=== PATIENT | male | born 1985 | race Caucasian/White ===

== ENCOUNTER → 2018-02-06 11:01 | Day surgery (SDC) | payer OTHER ==
[~2018-02-06 11:01] MED LIST: Buffered Lidocaine 0.9% SYRIN* 5 ML/SYR SYRINGE INTRADERM ONE; Dexamethasone TAB* 4 MG ONE; Dexamethasone TAB* 4 MG PO ONE; DiMENhydriNATE IV* 50 MG/ML VIAL IV PUSH PRN; Famotidine IV* 10 MG/ML 2 ML (20 mg) IV ONE; Famotidine IV* 10 MG/ML 2 ML (20 mg) ONE; KETAMINE HCL* 50 MG/ML 10 ML VIAL ONE; Lidocain 1% EPI 1:100,000 * 30 ML MDV ONE; Lidocaine 2% PF * 5 ML VIAL ONE; Lidocaine 4% TOPICAL* 50 ML TOP.SOLN ONE; Midazolam* 1 MG/ML 5 ML VIAL (5 MG) ONE; Morphine VIAL* 4 MG/ML VIAL (1 ml vial) IV PRN; Naloxone* 0.4 MG/ML 1 ML VIAL IV PRN; Ondansetron ODT TAB* 4 MG ONE; Ondansetron TAB* 4 MG PO ONE; Oxymetazoline 0.05% NASAL SPR* 15 ML BTL ONE; PROCHLORPERAZINE INJ 5 MG/ML 2 ML VIAL IV PRN; Propofol* 10 MG/ML 20 ML BTL ONE; fentaNYL* 50 MCG/ML 2 ML VIAL (100 MCG VIAL) IV PRN; fentaNYL* 50 MCG/ML 2 ML VIAL (100 MCG VIAL) ONE; oxyCODONE/Acetamin 5/325 MG* TAB PO PRN
[2018-02-06 14:35] VITALS: BP 124/85
--- NOTE | 2018-02-07 04:19 | OP ---
DATE OF OPERATION: 02/06/18 - [facility] DATE OF : 89. SURGEON: Heri Blake M.D. PRE-OP DIAGNOSIS: Chronic maxillary ethmoidal sinusitis. POST-OP DIAGNOSIS: Chronic maxillary ethmoidal sinusitis. OPERATIVE PROCEDURE: Bilateral endoscopic sinus surgery with maxillary antrostomies with debridement of the tissue and anterior ethmoidectomies under general laryngeal mask anesthesia. COMPLICATIONS: None. DISPOSITION: Good. SPECIMENS: Left and right sinus contents. DESCRIPTION OF PROCEDURE: The patient was taken to the operating room and placed in the supine position on the operating table. General anesthesia was induced and maintained with laryngeal mask airway anesthesia, turned and draped for the surgery. His nose was packed bilaterally with cottonoids impregnated with oxymetazoline and 4% lidocaine. After several minutes, these were removed and his uncinate process, middle turbinates, and anterior ethmoid bulla were all injected with 1% lidocaine with 1:100,000 epinephrine. The middle turbinates were medialized. The ball seeker was used to find the ostium and the maxillary sinus. A sickle knife was used to make an anterior cut to release the uncinate process. These were then debrided with the endoscopic instruments, Blakesley, Tr-Cut, and back biter. The maxillary antrostomies were widened using the same instruments to make a wide antrostomy for the maxillary sinuses. The anterior ethmoid bulla was entered with the curettes and the bony anterior wall was debrided opening up into the ethmoid sinuses. Stammberger Sinu-Foam was placed in the ostiomeatal units. This was done bilaterally. The patient tolerated the procedure well, no complications, and transferred to the recovery room in stable condition. [id number]/[facility] #: [id number] RONALDO
== END | disposition home or self-care (01) ==
LOC: OR 11:01
PROVIDERS: ATTEND Otolaryngology
DX: J32.2 Chronic ethmoidal sinusitis (principal)
CPT/HCPCS: 88305; A9270-GY; J2250; J2704; J3010; J8540

== ENCOUNTER 2018-12-27 12:05 | Emergency (ER) | payer OTHER ==
[2018-12-27 12:12] VITALS: BP 139/92
[2018-12-27] MEDS ORDERED: Albuterol/Ipratropium NEB.SOL* Albuterol 2.5 MG/Ipratropium 0.5 MG 3 ML INH ONE (12:26)
--- NOTE | 2018-12-27 12:33 | UC ---
Respiratory Complaint HPI - HPI Summary HPI Summary: has had URI and cough for 7 days. was seen and treated by PCP with prednisone, antibiotic but not getting better. also had a CXR which was negative patient has albuterol inhaler but hasn't used it - History of Current Complaint Chief Complaint: UCRespiratory Stated Complaint: COUGH Time Seen by Provider: 12/27/18 12:21 Hx Obtained From: Patient Onset/Duration: Gradual Onset Timing: Constant Severity Initially: Mild Severity Currently: Moderate Pain Intensity: 7 Aggravating Factors: Deep Breaths, Recumbent Position Alleviating Factors: Nothing Associated Signs And Symptoms: Positive: Wheezing, Nasal Congestion. Negative: Hemoptysis, Dizziness - Allergies/Home Medications Allergies/Adverse Reactions: Allergies Allergy/AdvReac Type Severity Reaction Status Date / Time No Known Allergies Allergy Verified 12/27/18 12:13 Home Medications: Home Medications Cefuroxime 500 MG(NF) 1 tab PO BID 12/27/18 [History Confirmed 12/27/18] Cetirizine* [ZyrTEC 10 MG TAB*] 1 tab PO DAILY 12/27/18 [History Confirmed 12/27] predniSONE TAB* [Deltasone 10 MG TAB*] 1 tab PO DAILY 12/27/18 [History Confirmed 12/27/18] PMH/Surg Hx/FS Hx/Imm Hx Previously Healthy: Yes Respiratory History: Asthma Other History Of: Negative For: HIV, Hepatitis B, Hepatitis C - Surgical History Surgical History: Yes Surgery Procedure, Year, and Place: WISDOM TEETH - Family History Known Family History: Positive: Hypertension Negative: Cardiac Disease - Social History Occupation: Employed Full-time Lives: With Family Alcohol Use: Weekly Alcohol Amount: 4/WEEK Substance Use Type: None Smoking Status (MU): Never Smoked Tobacco Have You Smoked in the Last Year: No Review of Systems All Other Systems Reviewed And Are Negative: Yes Constitutional: Positive: Negative Skin: Positive: Negative ENT: Positive: Sore Throat, Sinus Congestion. Negative: Ear Ache Respiratory: Positive: Cough Cardiovascular: Positive: Negative Gastrointestinal: Positive: Negative Neurological: Positive: Negative. Negative: Headache Psychological: Positive: Negative Is Patient Immunocompromised?: No Physical Exam Triage Information Reviewed: Yes Appearance: Well-Appearing, No Pain Distress, Obese Vital Signs: Initial Vital Signs Temp 96.7 F 12/27/18 12:09 Pulse 100 12/27/18 12:09 Resp 20 12/27/18 12:09 BP 139/92 12/27/18 12:09 Pulse Ox 100 12/27/18 12:09 Eye Exam: Normal Eyes: Positive: Conjunctiva Clear ENT: Positive: Pharynx normal, Nasal congestion, TMs normal Respiratory: Positive: No respiratory distress, Wheezing - productive cough Cardiovascular Exam: Normal Cardiovascular: Positive: RRR Neurological Exam: Normal Psychological Exam: Normal Skin Exam: Normal Re-Evaluation - Re-Evaluation First Eval Re-Evaluation Time: 13:00 - states breathing has improved Change: Improved Respiratory Course/Dx - Differential Dx/Diagnosis Differential Diagnosis/HQI/PQRI: Bronchitis, Influenza, Lower Resp Infection, Sinusitis Provider Diagnosis: Bronchospasm with bronchitis, acute Discharge ED - Sign-Out/Discharge Documenting (check all that apply): Patient Departure All imaging exams completed and their final reports reviewed: No Studies - Discharge Plan Condition: Improved Disposition: HOME Prescriptions: DOXYcycline CAP(*) [DOXYcycline 100MG CAP(*)] 100 mg PO BID #20 cap Patient Education Materials: Acute Bronchitis (ED) Forms: *Work Release Referrals: Tony Michael MD [Primary Care Provider] - 2 Days (recheck) Additional Instructions: stop current antibiotic and start doxycycline as prescribed use your nebulizer as prescribed report to ER if your breathing worsens - Billing Disposition and Condition Condition: IMPROVED Disposition: Home
== END 2018-12-27 13:19 | disposition home or self-care (01) ==
LOC: UCEAST 12:05
DX: J20.8 Acute bronchitis due to other specified organisms (principal); J45.909 Unspecified asthma, uncomplicated
CPT/HCPCS: 99212; A9270-GY; G0463

== ENCOUNTER 2019-04-05 12:34 | Emergency (ER) | payer OTHER ==
[2019-04-05 14:17] LABS: Influenza B Molecular POSITIVE (Negative)
[2019-04-05] MEDS ORDERED: Albuterol/Ipratropium NEB.SOL* Albuterol 2.5 MG/Ipratropium 0.5 MG 3 ML INH ONE (14:19)
--- NOTE | 2019-04-05 14:22 | UC ---
Respiratory Complaint HPI - HPI Summary HPI Summary: 33 y/o male presents to the urgent care c/o nasal congestion w/ yellowish nasal discharge, body aches,low grade fever, dry cough for the past 3 days. Pt reports PMHX of asthma and symptoms worsen last night when he developed wheezing and mild SOB when he is out in the cold. Pt has taken Ibuprofen PO and Zyrtec PO to alleviate symptoms w/o any improvement. He gave his inhaler to his mother last week b/c she was wheezing. Pt denies ANDERS, visual changes, dizziness, respiratory distress, chest pain, neck pain, weakness, abdominal pain , N/V/D. - History of Current Complaint Chief Complaint: UCRespiratory Stated Complaint: COUGH, CHEST CONGESTION Time Seen by Provider: 04/05/19 13:58 Hx Obtained From: Patient Onset/Duration: Gradual Onset, Lasting Days - 4 days, Still Present, Worse Since - yesterday w/ fever and wheezing Timing: Intermittent Episodes Severity Initially: Mild Severity Currently: Moderate Pain Intensity: 7 - body aches Pain Scale Used: 0-10 Numeric Character: Cough: Productive, Sputum Description: - yellowish Aggravating Factors: Recumbent Position Alleviating Factors: OTC Meds Associated Signs And Symptoms: Positive: Fever, Chills, Wheezing, URI, Nasal Congestion, Sinus Discomfort - Risk Factors Pulmonary Embolism Risk Factors: Negative Cardiac Risk Factors: Negative Pseudomonas Risk Factors: Negative Tuberculosis Risk Factors: Negative - Allergies/Home Medications Allergies/Adverse Reactions: Allergies Allergy/AdvReac Type Severity Reaction Status Date / Time No Known Allergies Allergy Verified 04/05/19 13:09 Home Medications: Home Medications Beclomethasone Dipropionate [Qnasl] 10.6 gm INH DAILY 04/05/19 [History Confirmed 04/05/19] PMH/Surg Hx/FS Hx/Imm Hx Previously Healthy: Yes Respiratory History: Asthma Other History Of: Negative For: HIV, Hepatitis B, Hepatitis C - Surgical History Surgical History: Yes Surgery Procedure, Year, and Place: WISDOM TEETH - Family History Known Family History: Positive: Hypertension Negative: Cardiac Disease - Social History Alcohol Use: Weekly Alcohol Amount: 4/WEEK Substance Use Type: None Smoking Status (MU): Never Smoked Tobacco Have You Smoked in the Last Year: No Review of Systems All Other Systems Reviewed And Are Negative: Yes Constitutional: Positive: Fever, Chills, Other - body aches Skin: Positive: Negative Eyes: Positive: Negative ENT: Positive: Sore Throat - mild, Nasal Discharge - yellowish, Sinus Congestion , Sinus Pain/Tenderness Respiratory: Positive: Cough - dry, Other - wheezing Cardiovascular: Positive: Negative Gastrointestinal: Positive: Negative Genitourinary: Positive: Negative Motor: Positive: Negative Neurovascular: Positive: Negative Musculoskeletal: Positive: Myalgia Neurological: Positive: Negative Psychological: Positive: Negative Is Patient Immunocompromised?: No Physical Exam - Summary Physical Exam Summary: Vital Signs Reviewed: Yes General: well developed, well nourished obese male sitting in the examining table w/o any apparent distress Eyes: Positive: Conjunctiva Clear - PERRLA, EOMI, fundi grossly normal ENT: Positive: Normal ENT inspection, Hearing grossly normal, Pharynx normal, Nasal congestion - edematous and erythematous nasal mucosa, Nasal drainage - yellowish drainage, TMs normal. Negative: Tonsillar swelling, Tonsillar exudate Neck: Positive: Supple, Nontender, No Lymphadenopathy Respiratory: no orthopnea or dyspnea. Able to speak in full sentences, no retractions or accessory muscle use, no tripod position, stridor, or head bobbing. Positive breath sounds bilaterally. diffuse scattered wheezing on b/ L lungs, no rhonchi, no crackles or rales. Cardiovascular: Positive: RRR, No Murmur, Pulses Normal, Brisk Capillary Refill Abdomen Description: Positive: Nontender, No Organomegaly, Soft. Negative: CVA Tenderness (R), CVA Tenderness (L) Bowel Sounds: Positive: Present Musculoskeletal Exam: Normal Musculoskeletal: Positive: Strength Intact, ROM Intact, No Edema Neurological Exam: Normal Psychological Exam: Normal Skin Exam: Normal Triage Information Reviewed: Yes Vital Signs: Initial Vital Signs Temp 97.6 F 04/05/19 13:04 Pulse 95 04/05/19 13:04 Resp 18 04/05/19 13:04 BP 147/112 04/05/19 13:04 Pulse Ox 100 04/05/19 13:04 Respiratory Course/Dx - Course Course Of Treatment: 33 y/o male presents to the urgent care c/o nasal congestion w/ yellowish nasal discharge, body aches,low grade fever, dry cough for the past 3 days. Pt reports PMHX of asthma and symptoms worsen last night when he developed wheezing and mild SOB when he is out in the cold. Pt has taken Ibuprofen PO and Zyrtec PO to alleviate symptoms w/o any improvement. He gave his inhaler to his mother last week b/c she was wheezing. Pt denies ANDERS, visual changes, dizziness, respiratory distress, chest pain, neck pain, weakness, abdominal pain , N/V/D. Hx obtained. Pt is hemodynamoically stable, A&OX3, w/ scattered wheezes on bilaterally lungs, no rhonchi or rales on examination. O2Sat:100%. Rapid Influenza A&B: Positive influenza B. Pt w/ an asthma exacerbation and his BP is elevated, but he is asymptomatic. Pt given Prednisone PO and Duoneb Treatment to alleviate symptoms. Pt tolerated well treatment and lungs improved, and wheezing resolved and BP decreased to 150/99 . Patient Tamiflu PO, Prednisone taper dose, Albuterol inhaler. as directed below. Pt strongly advised to decrease salt in diet, monitor BP and if it continues to be elevated to f/u with PCP for further management. However, strongly recommended if he develops chest pain, dizziness, visual disturbances, SOB, or severe ANDERS to go immediately to the ER for further management. Pt educated on HTN. The patient was recommended to increase fluid intake. Take medications as recommended. All D/C instructions explained. Patient understood and agree w/ plan of care. Pt left clinic hemodynamically stable , A&OX3 - Differential Dx/Diagnosis Differential Diagnosis/HQI/PQRI: Asthma, Bronchitis, Influenza, Lower Resp Infection, Sinusitis, Other - pneumonia Provider Diagnosis: Influenza A, Asthma exacerbation, Elevated BP without diagnosis of hypertension Discharge ED - Sign-Out/Discharge Documenting (check all that apply): Patient Departure - D/C home All imaging exams completed and their final reports reviewed: Yes - Discharge Plan Condition: Stable Disposition: HOME Prescriptions: Albuterol HFA INHALER* [Ventolin HFA Inhaler*] 1 - 2 puff INH Q6H PRN #1 mdi PRN Reason: Wheezing Oseltamivir CAP* [Tamiflu CAP*] 75 mg PO BID #10 cap predniSONE 20 mg TAB [Deltasone 20 MG TAB*] 20 mg PO DAILY #8 tab Patient Education Materials: Asthma (ED), Influenza (ED) Forms: *Work Release Referrals: Tony Michael MD [Primary Care Provider] - 2 Days Additional Instructions: 1- Please take the full course of the antiviral to avoid resistance. Encourage hand washing and wear a mask to avoid spreading. 2- Take Prednisone PO taper dose as directed starting tomorrow. First loading dose given today. 3-Continue using albuterol nebulizer treatment you have at home or albuterol inhaler to alleviate SOB, and wheezing as directed . Increase fluid intake, rest and eat well. 4-Please continue taking Tylenol PO q6-8hrs prn as instructed after meals to alleviate fever, and sore throat. Increase fluid intake, eat well, rest and avoid strenuous exercise 5- If symptoms do not improve or worsen or your develop SOB with fever and severe wheezing please go immediately to the ER further evaluation and treatment. 6- F/u with your PCP in 2-3 days for further management on your Asthma 7-Your BP is elevated today. Please take your BP medications and decrease salt in your diet, monitor BP and if it continues to be elevated please f/u with your PCP for further management. If you develop chest pain, dizziness, visual disturbances, SOB, or severe ANDERS please go immediately to the ER for further management - Billing Disposition and Condition Condition: STABLE Disposition: Home
[2019-04-05 15:39] VITALS: BP 150/99
== END 2019-04-05 15:37 | disposition home or self-care (01) ==
LOC: UCEAST 12:34
DX: J10.1 Influenza due to other identified influenza virus with other respiratory manifestations (principal); J45.909 Unspecified asthma, uncomplicated
CPT/HCPCS: 71046; 99213; A9270-GY; G0463; J7512